=== PATIENT | male | born 1970 ===

== ENCOUNTER 2017-11-16 23:31 | Emergency (ER) | payer SELFPAY ==
[2017-11-16 23:47] VITALS: RESP 18; TEMP 97.8; O2SAT 100
[2017-11-17] MEDS ORDERED: Alum-Mag Hydrox-Simethicone Susp (30 mL) ONE (00:27)
[2017-11-17] MEDS: Alum-Mag Hydrox-Simethicone Susp (30 mL) PO STA (00:37)
[2017-11-17] MEDS: Sodium Chloride 0.9% 1,000 ML IV STA (00:37)
--- NOTE | 2017-11-17 00:39 | ED PDOC ---
HPI: Chest Pain Time Seen by Provider: 11/17/17 00:11 Chief Complaint (Nursing): Abdominal Pain Chief Complaint (Provider): chest pain History Per: Patient History/Exam Limitations: no limitations Onset/Duration Of Symptoms: Hrs Current Symptoms Are (Timing): Still Present Additional Complaint(s): 47 y/o male presents with lower chest pain x 5 hours. Associated vomiting x 1. Patient admits to similar symptoms in past, states he was evaluated in an ED and told he has acid reflux and prescribed a GI cocktail which helped. Denies fever, cough, congestion, shortness of breath, palpitations, abdominal pain, leg pain/swelling. Past Medical History Reviewed: Historical Data, Nursing Documentation, Vital Signs Vital Signs: Last Vital Signs Temp 97.8 F 11/16/17 23:44 Pulse 59 L 11/16/17 23:44 Resp 18 11/16/17 23:44 BP 131/71 11/16/17 23:44 Pulse Ox 100 11/17/17 00:38 - Medical History PMH: GERD - Surgical History Surgical History: No Surg Hx - Family History Family History: States: No Known Family Hx - Living Arrangements Living Arrangements: With Family - Social History Current smoker - smoking cessation education provided: No Alcohol: Social Drugs: Denies - Home Medications Home Medications: Ambulatory Orders Medication Instructions Recorded Famotidine [Pepcid] 20 mg PO BID #20 tab 11/17/17 Ondansetron ODT [Zofran ODT] 4 mg PO Q8 PRN #10 odt 11/17/17 - Allergies Allergies/Adverse Reactions: Allergies Allergy/AdvReac Type Severity Reaction Status Date / Time No Known Allergies Allergy Verified 11/17/17 00:09 Review of Systems Cardiovascular: Positive for: Chest Pain Gastrointestinal: Positive for: Vomiting Physical Exam - Reviewed Nursing Documentation Reviewed: Yes Vital Signs Reviewed: Yes - Physical Exam Appears: Positive for: Well, Non-toxic, No Acute Distress Head Exam: Positive for: ATRAUMATIC, NORMAL INSPECTION, NORMOCEPHALIC Skin: Positive for: Normal Color Eye Exam: Positive for: Normal appearance ENT: Positive for: Normal ENT Inspection Cardiovascular/Chest: Positive for: Regular Rate, Rhythm Respiratory: Positive for: Normal Breath Sounds Gastrointestinal/Abdominal: Positive for: Normal Exam Back: Positive for: Normal Inspection Extremity: Positive for: Normal ROM Neurologic/Psych: Positive for: Alert, Oriented - Laboratory Results Result Diagrams: 11/17/17 00:46 11/17/17 00:46 - ECG ECG: Positive for: Viewed By Me (reviewed by ED attending) ECG Rhythm: Positive for: Sinus Bradycardia (59bpm) O2 Sat by Pulse Oximetry: 100 Pulse Ox Interpretation: Normal - Radiology X-Ray: Viewed By Me X-Ray Interpretation: No Acute Disease - Progress ED Course And Treament: labs, ekg, chest xray, GI cocktail On re-eval patient still reports pain in lower chest. IV pepcid, IV toradol, IV reglan ordered Patient vomited after IV reglan given; IV phenergan, IV benadryl ordered 3:45 Patient resting comfortably, states pain resolved. Tolerated PO. Patient educated on findings, discharged with rx Pepcid, Zofran. Advised diet modification. Follow up PMD. FOllow up GI Return precautions given. Disposition - Clinical Impression Clinical Impression: Atypical chest pain - Patient ED Disposition Is Patient to be Admitted: No Counseled Patient/Family Regarding: Studies Performed, Diagnosis, Need For Followup, Rx Given - Disposition Referrals: Bernabe Briones MD [Primary Care Provider] - Irvin Sanz MD [Medical Doctor] - Disposition: Routine/Home Disposition Time: 03:52 Condition: IMPROVED Prescriptions: Famotidine [Pepcid] 20 mg PO BID #20 tab Ondansetron ODT [Zofran ODT] 4 mg PO Q8 PRN #10 odt PRN Reason: Nausea/Vomiting Instructions: Chest Pain That Is Not Caused by the Heart (DC) Forms: [employer] (Croatian)
[2017-11-17 00:49] LABS: BASO % 0.3 % (0.0-2.0); EOS % 0.3 % (0.0-4.0); HEMOGLOBIN 15.9 g/dL (12.0-18.0); LYMPH # 1.9 K/uL (1.0-4.3); LYMPH % 19.9 % (20.0-40.0); MEAN CELL VOLUME 95.2 fl (80.0-94.0); MEAN CORPUSCULAR HEMOGLOBIN 32.3 pg (27.0-31.0); MEAN CORPUSCULAR HGB CONC 33.9 g/dL (33.0-37.0); MEAN PLATELET VOLUME 7.3 fl (7.2-11.7); MONO # 0.4 K/uL (0.0-0.8); MONO % 4.4 % (0.0-10.0); NEUT # 7.2 K/uL (1.8-7.0); NEUT % 75.1 % (50.0-75.0); RBC 4.93 Mil/uL (4.40-5.90); RED CELL DISTRIBUTION WIDTH 14.2 % (11.5-14.5); WHITE BLOOD COUNT 9.6 K/uL (4.8-10.8)
[2017-11-17] MEDS: Atrop/Hyos/Scop/PhenoB Elixir PO STA (00:49)
[2017-11-17 01:00] LABS: ALB/GLOB RATIO 1.2 (1.0-2.1); ALBUMIN 4.6 g/dL (3.5-5.0); ALT/SGPT 45 U/L (21-72); AST/SGOT 31 U/L (17-59); BLOOD UREA NITROGEN 10 mg/dl (9-20); CALCIUM 9.6 mg/dL (8.4-10.2); GFR AFRICAN-AMERICAN > 60; GFR NON-AFRICAN AMERICAN > 60
[2017-11-17] MEDS ORDERED: DiphenhydrAMINE 50 mg/ml Inj ONE (02:16)
[2017-11-17] MEDS: Promethazine 25 MG in Sodium Chloride 0.9% 100 ML IVPB STA (02:21)
[2017-11-17] MEDS: DiphenhydrAMINE 50 mg/ml Inj IVP STA (02:24)
[2017-11-17 04:05] VITALS: BP 126/72
[2017-11-17 04:08] VITALS: PULSE 62
--- NOTE | 2017-11-17 09:54 | RAD ---
HISTORY: chest pain COMPARISON: Chest radiograph dated 11/01/2009. TECHNIQUE: Chest PA and lateral FINDINGS: LUNGS: No active pulmonary disease. PLEURA: No significant pleural effusion identified. No pneumothorax apparent. CARDIOVASCULAR: Normal. OSSEOUS STRUCTURES: No significant abnormalities. VISUALIZED UPPER ABDOMEN: Normal. OTHER FINDINGS: None. IMPRESSION: No active disease.
--- NOTE | 2017-11-17 21:16 | CARD ---
APPROVED REPORT EKG Measurement Heart [id number] <Conclusion> Sinus bradycardia Otherwise normal ECG
--- NOTE | 2017-11-17 21:17 | CARD ---
APPROVED REPORT EKG Measurement Heart [id number] <Conclusion> Sinus rhythm normal ECG
== END 2017-11-17 04:00 | disposition home or self-care (01) ==
LOC: H.ER 23:31
DX: R07.9 Chest pain, unspecified (principal); K21.9 Gastro-esophageal reflux disease without esophagitis
CPT/HCPCS: 71046; 80053; 83690; 84484; 85025; 93005; 96361; 96365; 96367; 96375; 99285; J1200; J1885; J2550; J2765; J7040